=== PATIENT | female | born 1965 | race Caucasian/White ===

== ENCOUNTER 2017-11-02 04:34 | Emergency (ER) | payer SELFPAY ==
[~2017-11-02] VITALS: Ht 170.2 cm; Wt 79.8 kg
[~2017-11-02 04:34] MED LIST: AMOX500 PO; CEPH500 PO; HYDACE5 PO; PROACE100 PO; PROM25 PO; RANI150 PO; RXOXYACE PO; SULTRIDS PO
[2017-11-02 05:17] LABS: BASOPHILS ABSOLUTE AUTO 0.05 K/mm3 (0.00-0.23); BASOPHILS PERCENT AUTO 1 % (0-2); EOSINOPHILS ABSOLUTE AUTO 0.06 K/mm3 (0.00-0.68); EOSINOPHILS PERCENT AUTO 1 % (0-6); Hematocrit 37.8 % (33.0-51.0); Hemoglobin 13.2 g/dL (11.5-16.0); IMMATURE GRAN ABSOLUTE AUTO 0.02 K/mm3 (0.00-0.10); IMMATURE GRAN PERCENT AUTO 0 % (0-1); LYMPHOCYTES ABSOLUTE AUTO 1.95 K/mm3 (0.84-5.20); LYMPHOCYTES PERCENT AUTO 28 % (21-46); MONOCYTES ABSOLUTE AUTO 0.71 K/mm3 (0.16-1.47); MONOCYTES PERCENT AUTO 10 % (4-13); Mean Corpuscular HGB 31.1 pg (26.0-34.0); Mean Corpuscular HGB Conc 34.9 g/dL (31.5-36.5); Mean Corpuscular Volume 89 fL (80-100); NEUTROPHILS ABSOLUTE AUTO 4.28 K/mm3 (1.96-9.15); NEUTROPHILS PERCENT AUTO 61 % (41-73); Platelet Count 239 K/mm3 (150-400); RDW Coefficient Variation 12.4 % (11.7-14.2); RDW Standard Deviation 40.3 fL (35.1-46.3); Red Blood Cell Count 4.25 M/mm3 (3.80-5.20); White Blood Cell Count 7.07 K/mm3 (4.00-11.30)
[2017-11-02 05:38] LABS: Alanine Aminotransfer (ALT/SGP 80 U/L (12-78); Alk Phos 71 U/L (50-136); Anion Gap 10 mmol/L (6-16); Aspartate Aminotrans (AST/SGOT 46 U/L (12-37); Bilirubin, Total 0.6 mg/dL (0.1-1.0); Blood Urea Nitrogen 13 mg/dL (8-24); Bun/Creatinine Ratio 15.7 (12.0-20.0); CO2, Blood 25 mmol/L (21-32); Calcium, Blood 9.1 mg/dL (8.5-10.1); Chloride, Blood 108 mmol/L (98-108); Creatinine, Blood 0.83 mg/dL (0.40-1.00); Globulin, Blood 4.1 g/dL (2.2-4.0); Glomerular Filtration Rate >60 (60-); Glucose, Blood 93 mg/dL (70-99); Potassium, Blood 3.3 mmol/L (3.5-5.5); Sodium, Blood 143 mmol/L (136-145); Total Protein, Blood 8.1 g/dL (6.4-8.2); Troponin I <0.015 ng/mL (0.000-0.040)
== END 2017-11-02 08:15 | disposition home or self-care (01) ==
LOC: ER 04:34
PROVIDERS: Emergency Medicine
DX: R10.9 Unspecified abdominal pain (principal); F32.9 Major depressive disorder, single episode, unspecified; F43.9 Reaction to severe stress, unspecified; Z88.5 Allergy status to narcotic agent
CPT/HCPCS: 36415; 71046; 76705; 80053; 83690; 84484; 85025; 93005; 93010; 96374; 96375; 99284; J2060; J2405; J3010

== ENCOUNTER 2019-01-01 09:28 | Emergency (ER) | payer SELFPAY ==
[~2019-01-01] VITALS: Ht 170.2 cm; Wt 65.8 kg
[2019-01-01] MEDS ORDERED: CEPH500 PO (09:59)
[2019-01-01] MEDS ORDERED: Bactrim Ds Tab1 EACH PO (09:59)
== END 2019-01-01 10:11 | disposition home or self-care (01) ==
LOC: ER 09:28
DX: L03.112 Cellulitis of left axilla (principal); L02.412 Cutaneous abscess of left axilla; Z88.5 Allergy status to narcotic agent
CPT/HCPCS: 99282

== ENCOUNTER 2020-07-07 23:21 | Emergency (ER) | payer SELFPAY ==
[~2020-07-07] VITALS: Ht 170.2 cm; Wt 74.8 kg
[~2020-07-07 23:21] MED LIST changes: +Bactrim Ds Tab1 EACH PO
[2020-07-08] MEDS ORDERED: Cephalexin500 MG PO (00:43)
== END 2020-07-08 01:29 | disposition home or self-care (01) ==
LOC: ER 23:21
DX: S90.415A Abrasion, left lesser toe(s), initial encounter (principal); L03.032 Cellulitis of left toe; Z88.5 Allergy status to narcotic agent; Z23 Encounter for immunization; X58.XXXA Exposure to other specified factors, initial encounter
CPT/HCPCS: 90471; 90714; 99281-25; A9270; J0690

== ENCOUNTER 2021-08-11 17:23 | Emergency (ER) | payer SELFPAY ==
[~2021-08-11 17:23] MED LIST changes: +Cephalexin500 MG PO
== END 2021-08-11 18:17 | disposition left against medical advice (07) ==
LOC: ER 17:23
DX: Z53.21 Procedure and treatment not carried out due to patient leaving prior to being seen by health care provider (principal)

== ENCOUNTER 2021-08-13 18:53 | Emergency (ER) | payer SELFPAY ==
[~2021-08-13] VITALS: Ht 170.2 cm; Wt 77.1 kg
[2021-08-13] MEDS ORDERED: CEPH500 PO (20:02)
== END 2021-08-13 20:12 | disposition home or self-care (01) ==
LOC: ER 18:53
DX: L02.413 Cutaneous abscess of right upper limb (principal); L03.113 Cellulitis of right upper limb; Z88.5 Allergy status to narcotic agent
CPT/HCPCS: 10060; 99281-25; A9270

== ENCOUNTER 2022-04-19 06:36 | Emergency (ER) | payer SELFPAY ==
[~2022-04-19] VITALS: Ht 170.2 cm; Wt 77.0 kg
[2022-04-19] MEDS ORDERED: CEPH500 PO (07:33)
[2022-04-19] MEDS ORDERED: Bactrim Ds Tab1 EACH PO (07:33)
[2022-04-19] MEDS ORDERED: Mupirocin22 GM TOP (07:33)
== END 2022-04-19 07:53 | disposition home or self-care (01) ==
LOC: ER 06:36
DX: L03.116 Cellulitis of left lower limb (principal)
CPT/HCPCS: A9270